=== PATIENT | male | born 1975 | race Caucasian/White ===

== ENCOUNTER 2016-09-20 16:41 | Inpatient (IN) | payer OTHER ==
[~2016-09-20] VITALS: Ht 172.7 cm; Wt 86.2 kg
--- NOTE | 2016-09-20 16:47 | NUR ---
PT STATES HE WENT TO WALK IN TO GET CLEARED TO GO BACK TO WORK. PT STATES THEY MADE HIM COME TO ED BECAUSE HIS BP IS HIGH.
--- NOTE | 2016-09-20 17:08 | NUR ---
LABS DRAWN AND SENT BY THIS MST. BLUE,SST,LAV.
[2016-09-20 17:19] LABS: ABSOLUTE BASOPHIL COUNT 0.1 /CUMM (0.0-0.2); ABSOLUTE EOSINOPHIL COUNT 0.2 /CUMM (0.0-0.7); ABSOLUTE GRANULOCYTE CT 6.9 /CUMM (1.4-6.5); ABSOLUTE LYMPH COUNT 2.6 /CUMM (1.2-3.4); ABSOLUTE MONOCYTE COUNT 0.6 /CUMM (0.10-0.60); BASOPHIL % 0.6 % (0.0-2.0); GRANULOCYTE % 66.8 % (42.2-75.2); HEMATOCRIT 43.4 % (42-52); MEAN CORPUSCULAR HGB 31.6 PG (27.0-31.0); MEAN CORPUSCULAR HGB CONC 33.3 G/DL (33.0-37.0); MEAN CORPUSCULAR VOLUME 94.7 FL (80.0-94.0); MEAN PLATELET VOLUME 7.6 FL (7.4-10.4); PLATELET COUNT 314 /CUMM (130-400); RBC DISTRIBUTION WIDTH 14.7 % (11.5-14.5); RED BLOOD CELL CT 4.58 /CUMM (4.70-6.10); WHITE BLOOD CELL COUNT 10.3 /CUMM (4.8-10.8)
--- NOTE | 2016-09-20 18:22 | ED GENERAL ADULT ---
History of Present Illness General Chief Complaint: General Adult Stated Complaint: SIB DIZZY AND HEADACHE Source: patient Exam Limitations: no limitations Vital Signs & Intake/Output Vital Signs & Intake/Output Vital Signs Date Time Temp Pulse Resp B/P Pulse O2 O2 Flow FiO2 Ox Delivery Rate 09/20 2022 96.7 72 16 190/100 09/20 2022 96.7 72 16 190/100 09/20 2021 96.7 72 16 190/100 99 Room Air 09/20 1926 75 190/94 09/20 190 75 18 182/108 98 Room Air 09/20 1828 98.3 92 16 236/132 09/20 1817 236/132 09/20 1648 98.3 92 16 200/118 98 Room Air Allergies Coded Allergies: NO KNOWN ALLERGIES (09/20/16) Reconcile Medications No Known Home Medications Triage Note: PT STATES HE WENT TO WALK IN TO GET CLEARED TO GO BACK TO WORK. PT STATES THEY MADE HIM COME TO ED BECAUSE HIS BP IS HIGH. Triage Nurses Notes Reviewed? yes Onset: Gradual Duration: day(s): (1) Timing: remote history Injury Environment: home Severity: moderate Severity Numbers: 6 HPI: Patient is a 41-year-old male with no known past medical history, positive family history for hypertension on his mother sides with chief complaint of dizziness that started this morning. Patient reports that he was dizzy and works abated his blood pressure. It was extremely elevated so they sent him to the urgent care for evaluation. At the urgent care they took his blood pressure down and was extremely elevated and they did an EKG. He was referred to the emergency department for evaluation. Patient requesting to be cleared to go back to work. Patient denying any chest pain and shortness of breath. He reports that he feels very anxious. He reports that he drinks and smokes daily. No history of withdrawal seizures. Denies any drug use. (CHANEL TIDWELL) Past History Travel History Traveled to [place] past 21 day No Medical History Any Pertinent Medical History? see below for history Surgical History Surgical History: non-contributory Psychosocial History What is your primary language Portuguese Tobacco Use: Current Daily Use Daily Tobacco Use Amount/Type: => 5 Cigarettes daily ETOH Use: heavy use Illicit Drug Use: denies illicit drug use Family History Family History, If Any: MOTHER Relation not specified for: FH: hypertension Hx Contributory? Yes (CHANEL TIDWELL) Review of Systems Review of Systems Constitutional: Reports: no symptoms. Comments Review of systems: See HPI, All other systems negative. Constitutional, no chills fever or weight loss HEENT: No visual changes no sore throat no congestion Cardiovascular: No chest pain ,palpitation , orthopnea or ankle swelling Skin, no jaundice no rashes Respiratory: No dyspnea cough sputum or hemoptysis GI: No nausea no vomiting : No dysuria No hematuria Muscle skeletal: no back pain, no neck pain, Neurologic: No numbness no confusion Psych: Positive stress and anxiety Heme/endocrine: No bruising no bleeding no polyuria or polydipsia Immunology: No splenectomy or history of AIDS (CHANEL TIDWELL) Physical Exam Physical Exam General Appearance: well developed/nourished, awake, anxious Comments: Well-developed well-nourished person in no acute distress HEENT: Normal EENT exam, extraocular motion intact, no nystagmus. Pupils equally round and reactive to light and accommodation. Nose is atraumatic. External auditory canal and Tympanic membranes clear. Pharynx normal. No swelling or edema. Funduscopic: Somewhat limited secondary to no narration prior to exam. No obvious retinal detachment or hemorrhage or venous nicking noted. Neck: Supple, no lymphadenopathy, normal range of motion without pain or tenderness Back: Nontender, no CVA tenderness. Full range of motion Cardiovascular: Regular rate and rhythms no murmurs rubs or gallops, normal JVP Respiratory: Chest nontender. No respiratory distress.diffuse wheezing to auscultation bilaterally Abdomen: Soft, nontender nondistended, no appreciable organomegaly. Normal bowel sounds. No ascites Extremity: No edema, no calf tenderness to palpation, normal and equal pulses. Neuro: Alert oriented x3, motor sensory normal, cranial nerves II through XII grossly intact. Skin: No appreciable rash on exposed skin, skin is warm and dry. Psych: ANXIOUS, memory and judgment is normal. Core Measures ACS in differential dx? Yes CVA/TIA Diagnosis: No Severe Sepsis Present: No Septic Shock Present: No (CHANEL TIDWELL) Progress Differential Diagnoses I considered the following diagnoses in my evaluation of the patient: Hypertensive urgency, alcohol withdrawal, medication and complaints, ACS, intracranial hemorrhage, acute kidney injury Plan of Care: Orders Procedure Date/time Status Regular Diet 09/21 B Active Patient Data 09/20 2042 Active OXYGEN SETUP (GEN) 09/20 2020 Active Saline Lock 09/20 2020 Active Admit to inpatient 09/20 2020 Active Vital Signs 09/20 2020 Active Activity/Ambulation 09/20 2020 Active Code Status 09/20 2020 Active Patient Data 09/20 2016 Active Add-on Test (ER Only) 09/20 192 Active CIWA 09/20 1909 Active ETHANOL 09/20 170 Complete TROPONIN LEVEL 09/20 1650 Complete COMPREHENSIVE METABOLIC PANEL 09/20 1650 Complete CBC WITHOUT DIFFERENTIAL 09/20 1650 Complete EKG 09/20 1649 Active Laboratory Tests 09/20/16 1703: Anion Gap 11, Estimated GFR > 60, BUN/Creatinine Ratio 13.8, Glucose 95, Calcium 10.0, Total Bilirubin 0.9, AST 24, ALT 37, Alkaline Phosphatase 132 H, Troponin I < 0.01, Total Protein 7.7, Albumin 4.3, Globulin 3.4, Albumin/Globulin Ratio 1.3, CBC w Diff NO MAN DIFF REQ, RBC 4.58 L, MCV 94.7 H, MCH 31.6 H, RDW 14.7 H, MPV 7.6, Gran % 66.8, Lymphocytes % 25.2, Monocytes % 5.4, Eosinophils % 2.0 , Basophils % 0.6, Absolute Granulocytes 6.9 H, Absolute Lymphocytes 2.6, Absolute Monocytes 0.6, Absolute Eosinophils 0.2, Absolute Basophils 0.1, PUBS MCHC 33.3, Serum Alcohol < 10.0 Diagnostic Imaging: Viewed by Me: Radiology Read, CT Scan. Discussed w/RAD: Radiology Read, CT Scan. Initial ED EKG: SINUS AT 86 BPM, RBBB, LPFB Comments: 09/20/2016 6:39:32 PM patient slightly anxious, hypertensive urgency. Patient medicated with IV labetalol 20 mg. We will reassess in 20 minutes. Labs do not show any signs of acute organ failure. We will also obtain urinalysis, chest x- ray and CT of the head. She was squares will be performed the patient reports he is a daily drinker. 09/20/2016 8:23:25 PM blood pressure seems to be trending down after IV labetalol. Spoke with Dr. 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 Recommending admission for hypertensive urgency. Also recommending adding on 200 by mouth labetalol, IV Ativan. No signs of end organ damage. Patient will likely need echocardiogram and cardiology consultation. Patient complIANT with admission. (CHANEL TIDWELL) Departure Departure Time of Disposition: 2010 Disposition: STILL A PATIENT Condition: Stable Clinical Impression Primary Impression: Hypertensive urgency Referrals: REESE ORTIZ,TRES (PCP/Family) Departure Forms: Customer Survey General Discharge Information Prescriptions: Current Visit Scripts No Known Home Medications Admission Note Spoke With: NAN ORTIZ PhD,BRO Interiano Documentation of Exam: Documentation of any treatments & extenuating circumstances including Concerns Regarding Discharge (functional status, medication knowledge or non-compliance, living conditions, etc.) that warrant an admission rather than observation: Patient requiring telemetry monitoring, cardiology consultation, echocardiogram, IV antihypertensive medications, conversion to by mouth antihypertensive medications. Discharge at this time would be medically harmful which could and in stroke, MT or . (CHANEL TIDWELL) PA/WRINGER OPERATOR Co-Sign Statement Statement: ED Attending supervision documentation- X I saw and evaluated the patient. I have also reviewed all the pertinent lab results and diagnostic results. I agree with the findings and the plan of care as documented in the PA's/WRINGER OPERATOR's documentation. [] I have reviewed the ED Record and agree with the PA's/WRINGER OPERATOR's documentation. [] Additions or exceptions (if any) to the PAs/WRINGER OPERATOR's note and plan are summarized below: [] (HUMAIRA ORTIZ,RODERICK) Critical Care Note Critical Care Note Critical Care Time: 30-74 min (CHANEL TIDWELL)
--- NOTE | 2016-09-20 18:25 | NUR ---
IV ACCESS ESTABLISHED BY THIS RN RH #[id number].
--- NOTE | 2016-09-20 18:34 | NUR ---
PT TO XRAY VIA STRETCHER
--- NOTE | 2016-09-20 19:04 | NUR ---
BACK FROM CT AND XRAY. AFTER LABETOLOL BP IMPROVED FROM 236/132-182/108. PA AWARE.
--- NOTE | 2016-09-20 19:05 | RADIOLOGY REPORT ---
EXAMINATION: CHEST 2 VIEWS CLINICAL INFORMATION: Hypertension. COMPARISON: None. TECHNIQUE: PA and lateral views of the chest were obtained. FINDINGS: The cardiac silhouette is not enlarged. The mediastinal and hilar contours are unremarkable. There are neither pleural effusions nor pneumothoraces. There are no consolidations. The osseous structures are unremarkable. IMPRESSION: No evidence for acute disease.
--- NOTE | 2016-09-20 19:32 | CT SCAN REPORT ---
EXAMINATION: CT HEAD WITHOUT CONTRAST CLINICAL INFORMATION: Hypertensive urgency. Dizziness. COMPARISON: No relevant prior imaging is available. TECHNIQUE: Contiguous axial imaging was performed from the skull base to vertex without intravenous administration of contrast. DLP: 600.71 mGy-cm FINDINGS: There is no acute intracranial hemorrhage or abnormal extra axial collection. No intracranial mass effect or midline shift. Lateral and third ventricles are normal. No hydrocephalus. Darby-white matter differentiation is preserved and there is no evidence of acute territorial infarct. The calvarium and skull base are intact. Mastoid air cells and middle ear cavities are well aerated. Visualized paranasal sinuses are well aerated with the exception of mild disease within ethmoid air cells. There are a few ovoid well marginated subcutaneous lesions within the suboccipital region, one of which appears to represent a epidermal inclusion cyst. Some of these may represent lymph nodes. Correlation with clinical examination is recommended with regard to this finding. IMPRESSION: No acute intracranial finding. Specifically no evidence of acute hemorrhage. There are a few ovoid well marginated subcutaneous lesions within the suboccipital region one of which appears represent an epidermal inclusion cyst. Some of these may represent lymph nodes. Correlation with clinical examination is recommended with regard to this finding.
[2016-09-20 20:23] VITALS: BP 190/100
--- NOTE | 2016-09-20 20:39 | NUR ---
MEDICATED PER EMAR. CIWA 6, NO CLEAR SIGNS OF WITHDRAWAL (ANXIETY R/T LIFE STRESSORS AND ONGOING FOR DAYS PER PT, HEADACHE ?R/T HYPERTENSION.) MEDICATED WITH LABETOLOL AND ATIVAN PER EMAR. WATER PROVIDED, PT REFUSED MEAL AT THIS TIME. AWAITING ADMISSION.
--- NOTE | 2016-09-20 20:44 | History & Physical ---
RAÚL ORTIZ,[facility] 09/20/162043: General Information and HPI MD Statement: I have seen and personally examined TIESHA BENITO and documented this H&P. The patient is a 41 year old M who presented with a patient stated chief complaint of elevated blood pressure. Source of Information: patient Exam Limitations: no limitations History of Present Illness: This is a 41-year-old gentleman with no known past medical history is sent in by an urgent care for evaluation of elevated BP. Patient states that while at his normal state of health working as a [employer] and [employer] history experiencing some lightheadedness and felt that he was sick. Patient decided to go to an urgent care for evaluation and his BP measurement was remarkable for elevated numbers which he reports to be in the 200s systolic. Patient also states that urgent care obtain an EKG which was reported to be abnormal and he was therefore referred to [place] ED. Patient denies any chest pain, palpitation, vision changes, altered mental status, or any focal neurological deficit. He does report intermittent episodes of anxiety but has never been evaluated or treated for it. Patient also reports a social history of drinking about 8-10 twisted teas and a 20 year cigarette smoking history of 1 pack per day. Does deny any use of illicit drugs. Patient denies any fever, chills, cough, recent URI, sick contacts, nausea, vomiting, muscle pain, abdominal pain, or dysuria Allergies/Medications Allergies: Coded Allergies: NO KNOWN ALLERGIES (09/20/16) Home Med list No Known Home Medications Past History Travel History Traveled to [place] past 21 day No Surgical History Surgical History: non-contributory Past Family/Social History Family History Relations & Conditions if any MOTHER Relation not specified for: FH: hypertension Psychosocial History ETOH Use: heavy use Illicit Drug Use: denies illicit drug use Review of Systems Review of Systems Constitutional: Reports: see HPI. EENTM: Reports: blurred vision, double vision. Cardiovascular: Denies: chest pain, edema, orthopena. Respiratory: Denies: cough, hemoptysis, orthopnea. GI: Denies: abdominal pain, bloating, constipation, diarrhea. Genitourinary: Denies: discharge, dysuria, frequency. Musculoskeletal: Denies: gout, joint pain, joint swelling. Skin: Denies: dryness, erythema, jaundice, lesions. Neurological/Psychological: Denies: emotional problems, headache, numbness, paresthesia. Hematologic/Endocrine: Denies: bruising, bleeding, polyuria. Immunologic/Allergic: Reports: no symptoms. Exam & Diagnostic Data Last 24 Hrs of Vital Signs/I&O Vital Signs Date Time Temp Pulse Resp B/P Pulse O2 O2 Flow FiO2 Ox Delivery Rate 09/20 2305 97.7 73 20 148/90 96 Room Air 09/20 2233 97.0 83 16 162/84 09/20 2233 97.0 83 16 162/84 100 Room Air 09/20 2120 75 16 162/86 98 Room Air 09/20 2022 96.7 72 16 190/100 09/20 2022 96.7 72 16 190/100 09/20 2021 96.7 72 16 190/100 99 Room Air 09/20 1926 75 190/94 09/20 1903 75 18 182/108 98 Room Air 09/20 1828 98.3 92 16 236/132 09/20 1817 236/132 09/20 1648 98.3 92 16 200/118 98 Room Air Intake & Output 09/21 0800 09/21 0000 09/20 1600 Intake Total Output Total Balance Patient 86.183 kg Weight Physical Exam General Appearance Alert, Oriented X3, Cooperative Skin No Significant Lesion HEENT Atraumatic, PERRLA, EOMI, no papilla edema noted Neck Supple, No JVD, No thryomegaly Lymphatic Cervical nl Cardiovascular Regular Rate, Normal S1, Normal S2, No Murmurs, Gallops Lungs Clear to Auscultation, Normal Air Movement Abdomen Normal Bowel Sounds, Soft, No Tenderness Neurological Normal Speech, Normal Tone, Sensation Intact Extremities No Edema, Normal Pulses, No Tenderness/Swelling Vascular Normal Pulses, Pulses Symmetrical Last 24 Hrs of Labs/Nathaniel: Laboratory Tests 09/21/16 0015: Troponin I < 0.01 09/20/16 1703: Anion Gap 11, Estimated GFR > 60, BUN/Creatinine Ratio 13.8, Glucose 95, Calcium 10.0, Total Bilirubin 0.9, AST 24, ALT 37, Alkaline Phosphatase 132 H, Troponin I < 0.01, Total Protein 7.7, Albumin 4.3, Globulin 3.4, Albumin/Globulin Ratio 1.3, CBC w Diff NO MAN DIFF REQ, RBC 4.58 L, MCV 94.7 H, MCH 31.6 H, RDW 14.7 H, MPV 7.6, Gran % 66.8, Lymphocytes % 25.2, Monocytes % 5.4, Eosinophils % 2.0 , Basophils % 0.6, Absolute Granulocytes 6.9 H, Absolute Lymphocytes 2.6, Absolute Monocytes 0.6, Absolute Eosinophils 0.2, Absolute Basophils 0.1, PUBS MCHC 33.3, Serum Alcohol < 10.0 Diagnostic Data EKG Results RBBB Assessment/Plan Assessment: This is a 41-year-old gentleman with no known past medical history presents for evaluation of hypertensive urgency. Patient is also noted to be consuming daily alcohol of about 8-10 twisted teas a day and smokes about 1 pack per day for about 20 years. She also endorses a remote intermittent history of anxiety which he states has never been evaluated or treated. Patient presented to ED with elevated blood pressure of 236/132 with a heart rate of 72. He also reports that the BP at urgent care was in the high 200s ( systolic) Assessment and plan #Hypertensive urgency Patient presents with elevated blood pressure levels above 236/132 with no symptoms of chest pain, vision changes, altered mental status, or any focal neurological deficit. Plan Status post 20 mg IV labetalol and 200 mg by mouth labetalol Need to be cautious to prevent precipitous drop of BP as it is not known how long patient has elevated blood pressures therefore might be at increased risk of ischemia if BP lowered drastically. Will start labetalol 200 mg twice a day starting tomorrow morning Will trend serial troponins and EKG #Alcohol abuse Patient endorses a daily usage of 8-10 twisted teas. Plan Lorazepam per [facility] protocol Will monitor for any withdrawal symptoms including seizures #Tobacco abuse Will start nicotine 40 mg daily as patient smokes one pack per day #DVT prophylaxis Subcutaneous Lovenox As Ranked By This Provider Problem List: 1. Hypertensive urgency Core Measures/Miscellaneous Acute Coronary Syndrome ACS Diagnosis: No Cerebrovascular Accident CVA/TIA Diagnosis: No Congestive Heart Failure CHF Diagnosis: No Venous Thromboembolism VTE Risk Factors: Age > 40 [facility] prophylaxis d/t: No contraindications No VTE Pharm Prophylaxis d/t: No contraindications VTE Diagnosis: No VTE Type: NONE VTE Confirmed by (Test): NONE Severe Sepsis Severe Sepsis Present: No Septic Shock Septic Shock Present: No Miscellaneous Documentation Attending Case Discussed With: NAN ORTIZ PhD,BRO Interiano Primary Care Physician: REESE ORTIZ,TRES Patient sees these Specialists none Level of Patient Care: Telemetry KRISS ALVARADO MD 09/20/16 2356: Resident Review Statement Resident Statement: examined this patient, discussed with financial analyst intern, agreed with financial analyst intern Other Findings: 41 y/o M with no know PMH who presents to the ED after he was sent in from an Urgent Care clinic for elevated BP. According to the patient, he started feeling a little lightheaded and warm this morning. He works at [employer]. His co- workers checked his BP because he did not look well and it was elevated at 160 Systolic. He was sent to an Urgent care clinic, where it was still found to be high. An EKG was done which showed some changes, and he was sent to the ED for further evaluation. He does not report any chest pain or pressure, palpitations, nausea etc. He states that his diet is not very healthy and he eats only once a day. He drinks 8-10 twisted teas a day and smokes 1 PPD. He reports feeling anxious all this time but does not take any medications for his anxiety. Vitals: BP at the time of arrival was 236/132/ HR 72-95, saturating 99% on RA Exam: WNL Labs: WNL, Trops x 1 <0.01 Problem List: 1) Hypertensive Urgency: * Patient has already received 20 mg of IV Labetalol, 200 mg PO Labetalol and 1 mg of Ativan in the ED. His blood pressure decreased to 148/90. * Will hold off on any further medications for now. * Start Labetalol 200 mg BID from tomorrow. * ECHO to assess for LV function * Trops and EKG x3 2) ETOH usage: * As he continues to use ETOH daily, CIWA protocol and Ativan per CIWA 3) Smoker: * Smokes 1 PPD. * Start Nicotine Patch 14 mg daily. 4) DVT PPx: * SubQ Lovenox 5) Pain Pathway: * Tylenol PRN 6) Code Status: * Full Code
--- NOTE | 2016-09-20 21:21 | NUR ---
PT FEELING BETTER, SLEEPING ON/OFF, REPORTS HEADACHE AND ANXIETY IMPROVED. NO COMPLAINTS. AWAITING ADMISSION.
--- NOTE | 2016-09-20 21:56 | NUR ---
PT BED ASSIGNMENT 174-2
--- NOTE | 2016-09-20 21:58 | NUR ---
HOUSE STAFF AT BEDSIDE
[2016-09-20 22:34] VITALS: BP 162/84
--- NOTE | 2016-09-20 22:35 | NUR ---
PT ASLEEP, EASILY AROUSED, NO COMPLAINTS, NO SIGNS OF WITHDRAWAL, PT FEELING MILDLY SEDATED FROM ATIVAN.
--- NOTE | 2016-09-20 22:39 | NUR ---
REPORT CALLED TO TONA ON 1N.
[2016-09-20 23:00] VITALS: BP 148/90
[2016-09-20 23:05] VITALS: BP 148/90
[2016-09-21 05:50] VITALS: BP 152/90
--- NOTE | 2016-09-21 07:07 | PN- Housestaff ---
Subjective Follow-up For: #1 hypertensive urgency Alcohol abuse Complaints: no complaints Tele-Events Since Last Visit: Normal sinus rhythm, heart rate 64-83, no overnight events. Subjective: The patient comfortable. Did not have any complaints. Vitals were stable overnight. Blood pressure dropped down from systolic 200--> 148. He remained afebrile overnight. No chest pain, palpitations, shortness of breath. Review of Systems Constitutional: Reports: see HPI. Objective Last 24 Hrs of Vital Signs/I&O Vital Signs Date Time Temp Pulse Resp B/P Pulse O2 O2 Flow FiO2 Ox Delivery Rate 09/20 2304 97.7 73 20 148/90 96 Room Air 09/20 230 82 18 148/90 09/20 2233 97.0 83 16 162/84 09/20 2233 97.0 83 16 162/84 100 Room Air 09/21 2119 75 16 162/86 98 Room Air 09/20 2022 96.7 72 16 190/100 09/20 2022 96.7 72 16 190/100 09/20 2021 96.7 72 16 190/100 99 Room Air 09/20 1926 75 190/94 09/20 1903 75 18 182/108 98 Room Air 09/20 1828 98.3 92 16 236/132 09/20 1817 236/132 09/20 1648 98.3 92 16 200/118 98 Room Air Intake & Output 09/21 0800 09/21 0000 09/20 1600 Intake Total Output Total Balance Patient 190 lb Weight Physical Exam General Appearance: No Acute Distress Other Physical Findings: General Exam: AAOx3, No acute distress, Skin: No rashes, no breakdown HEENT: PERRLA, EOMI Neck: Supple, No JVD No cervical lymphadenopathy CVS: Reg Rate, Normal S1,S2, No MGR Resp: Normal air entry, no ronchi/rales Abdomen: Soft, No tenderness, Normal Bowel Sounds Neuro: Normal Speech, Strength 5/5 b/l x 4 extremities, Sensation intact, CN III -XII NL, Reflexes 2+ Extremities: No cyanosis, pedal edema Current Medications: Current Medications Sig/Jose C Start time Last Medication Dose Route Stop Time Status Admin Acetaminophen 650 MG Q6P PRN 09/20 2300 AC PO Enoxaparin Sodium 40 MG DAILY 09/21 1000 AC SC Influenza Virus 0.5 ML 1000 09/21 1000 AC Vaccine IM 09/21 1001 Labetalol HCl 200 MG BID 09/21 1000 AC PO Labetalol HCl 0 .STK-MED ONE 09/21 2019 DC PO Labetalol HCl 200 MG ONCE ONE 09/20 2014 DC 09/20 PO 09/20 Labetalol HCl 20 MG ONCE ONE 09/20 1830 DC 09/20 IV 09/20 1831 1828 Labetalol HCl 0 .STK-MED ONE 09/20 1825 DC IV Lorazepam 0 Q1P PRN 09/20 2300 AC IV Lorazepam 0 .STK-MED ONE 09/20 2018 DC .ROUTE Lorazepam 1 MG ONCE ONE 09/20 2014 DC 09/20 IV 09/20 Nicotine 14 MG Q24 09/21 1000 AC TOP Last 24 Hrs of Lab/Nathaniel Results Last 24 Hrs of Labs/Mics: Laboratory Tests 09/21/16 0015: Troponin I < 0.01 09/20/16 1703: Anion Gap 11, Estimated GFR > 60, BUN/Creatinine Ratio 13.8, Glucose 95, Calcium 10.0, Total Bilirubin 0.9, AST 24, ALT 37, Alkaline Phosphatase 132 H, Troponin I < 0.01, Total Protein 7.7, Albumin 4.3, Globulin 3.4, Albumin/Globulin Ratio 1.3, CBC w Diff NO MAN DIFF REQ, RBC 4.58 L, MCV 94.7 H, MCH 31.6 H, RDW 14.7 H, MPV 7.6, Gran % 66.8, Lymphocytes % 25.2, Monocytes % 5.4, Eosinophils % 2.0 , Basophils % 0.6, Absolute Granulocytes 6.9 H, Absolute Lymphocytes 2.6, Absolute Monocytes 0.6, Absolute Eosinophils 0.2, Absolute Basophils 0.1, PUBS MCHC 33.3, Serum Alcohol < 10.0 Assessment/Plan Assessment: Mr Odalys trevizo is a 41-year-old man with a past history of hypertension, is being evaluated for elevated blood pressure systolic blood pressure above 200. Reports regular alcohol intake, nonsmoker. At the time of admission, temperature 98.3, pulse rate 92, respirations 16, note not to 236/132, 98% on room air. Lab findings indicated W BC 10.3, hemoglobin 14.5, MCV 94.7, platelet 314, sodium 136, potassium 4.1, bicarbonate 24, normal renal function BUN 11, serum creatinine 0.8, serial cardiac enzymes within normal limits. Serum alcohol less than 10. Radiology-chest x-ray revealed no acute process. CT scan head without contrast revealed no acute finding. No ischemia or hemorrhage. However, a few well marginated subcutaneous lesions in the sub-occipital region were found likely epidermal inclusion cysts/lymph nodes. Admission diagnosis: #1 hypertensive urgency #2 alcohol abuse Below is the problem list and plan: #1 hypertension-blood pressure adequately controlled. Precipitous drop in blood pressure more than 25% in the last 24 hours. Continue the current regimen. Do not overzealously correct the blood pressure. Continue labetalol 200 mg by mouth twice a day. #2 alcohol abuse-low CIWA scores. Currently on Ativan when necessary. Has not required any IV lorazepam in the last 24 hours. Gives a history of alcohol use, anxiety and depression. Requested psychiatry-[facility] to evaluate the patient. #3 DVT prophylaxis-subcutaneous Lovenox. Problem List: 1. Hypertensive urgency Pain Ratin Pain Location: Headache Pain Goal: Pain 4 or less Pain Plan: Tylenol when necessary Tomorrow's Labs & Rationales: No labs necessary. The patient has been stable in the last 24 hours. DVT/Prophylaxis: pharmacological Consulting Request: Consulting Specialty: Psychiatry Discharge Plan Discharge Disposition: home Stable for Discharge? Yes Anticipated Discharge (Day): tomorrow
[2016-09-21 07:54] LABS: ABSOLUTE BASOPHIL COUNT 0 /CUMM (0.0-0.2); ABSOLUTE EOSINOPHIL COUNT 0.2 /CUMM (0.0-0.7); ABSOLUTE GRANULOCYTE CT 3.8 /CUMM (1.4-6.5); ABSOLUTE LYMPH COUNT 2.1 /CUMM (1.2-3.4); ABSOLUTE MONOCYTE COUNT 0.5 /CUMM (0.10-0.60); BASOPHIL % 0.7 % (0.0-2.0); EOSINOPHIL % 3.7 % (0-5); GRANULOCYTE % 56.4 % (42.2-75.2); HEMATOCRIT 40.6 % (42-52); MEAN CORPUSCULAR HGB 31.6 PG (27.0-31.0); MEAN CORPUSCULAR HGB CONC 33.4 G/DL (33.0-37.0); MEAN CORPUSCULAR VOLUME 94.7 FL (80.0-94.0); MEAN PLATELET VOLUME 7.9 FL (7.4-10.4); PLATELET COUNT 267 /CUMM (130-400); RBC DISTRIBUTION WIDTH 14.7 % (11.5-14.5); RED BLOOD CELL CT 4.29 /CUMM (4.70-6.10); WHITE BLOOD CELL COUNT 6.7 /CUMM (4.8-10.8)
[2016-09-21 08:20] VITALS: BP 164/80
[2016-09-21 12:01] VITALS: BP 150/88
--- NOTE | 2016-09-21 13:56 | Cons- Cardiology ---
General Information and HPI Consulting Request Date of Consult: 09/21/16 Requested By: NAN ORTIZ PhD,BRO [facility] History of Present Illness: This patient is a 41 year old male with history of alcohol abuse. This patient has longstanding issues with anxiety and stress which have become a bit worse over the course of time. He also reports issues with depression. The patient came to the ER yesterday after a transient lightheaded episode associated with diaphoresis and palpitations. No nausea or vomiting. No headache or visual deficit. He does have intermittent palpitations at baseline when stressed out. He also has an intermittent mild chest discomfort that tends to radiate to his neck. It did not occur yesterday but often happens both with stress and activity. It should be noted that this patient's blood pressure was severely elevated to over 230mmHg systolic. At baseline this patient is active without shortness of breath. He does drink about 12 drinks per day. Allergies/Medications Allergies: Coded Allergies: NO KNOWN ALLERGIES (09/20/16) Home Med List: No Known Home Medications Review of Systems Review of Systems: A twelve point review of systems is unremarkable. Past History Travel History Traveled to [place] past 21 day No Medical History Blood Transfusion Hx: No Surgical History Surgical History: non-contributory Family History Relations & Conditions If Any: MOTHER Relation not specified for: FH: hypertension Psychosocial History Where Do You Live? Home Services at Home: None Smoking Status: Current Everyday Smoker ETOH Use: heavy use Illicit Drug Use: denies illicit drug use Exam & Diagnostic Data Vital Signs and I&O Vital Signs Date Time Temp Pulse Resp B/P Pulse O2 O2 Flow FiO2 Ox Delivery Rate 09/21 1619 98.5 69 16 156/87 97 Room Air 09/21 1201 150/88 09/21 1015 70 164/80 09/21 0820 98.0 70 20 164/80 97 Room Air 09/21 0550 78 152/90 09/20 2304 97.7 73 20 148/90 96 Room Air 09/20 2299 82 18 148/90 09/20 2233 97.0 83 16 162/84 09/20 2233 97.0 83 16 162/84 100 Room Air 09/200 75 16 162/86 98 Room Air 09/20 2022 96.7 72 16 190/100 09/20 2022 96.7 72 16 190/100 09/20 2021 96.7 72 16 190/100 99 Room Air 09/20 1925 75 190/94 09/20 1902 75 18 182/108 98 Room Air 09/21 1827 98.3 92 16 236/132 09/20 1817 236/132 Intake & Output 09/21 1600 09/21 0800 09/21 0000 09/20 1600 09/20 0800 09/20 0000 Intake Total 480 240 Output Total Balance 480 240 Intake, Oral 480 240 Patient 190 lb Weight Physical Exam: General: WD/ overweight male in NAD; alert and oriented x 3 HEENT: NC/AT, PERRL, EOMI Neck: no JVD, no carotid bruit Heart: RRR w/o murmur Lungs: clear bilaterally Abdomen: soft, NT, +ve bowel sounds Extremities: no edema Diagnostic Data EKG Results sinus with RBBB, LPFB and small non-diagnostic Q waves in the lateral leads Assessment/Plan Assessment/Plan * This patient has anxiety that he tries to treat by consuming alcohol and he now has depression. The alcohol and anxiety are likely contributors to his hypertension although they are unlikely to be the sole source of this problem. We will ask psychiatry to help us with his dependency issues and anxiety/ depression. For now the patient needs to be on a CIWA protocol. * This patient has a RBBB and LPFB likely due to some lung disease from tobacco abuse. He is advised to quit smoking. We will obtain an echocardiogram to assess for increased RV pressures as well as for myocardial thickening from longstanding hypertension. If this cannot be done as an inpatient then it is reasonable to do this study as an outpatient. * Our goal is to reduce this patient's blood pressure to about 150-160mmHg over the first 24 hours and then reach a goal of less than 140mmHg systolic prior to discharge. Begin Labetolol 200mg PO BID. If BP remains elevated tomorrow an ACEI can be added. Consult Acknowledgment - Thank you for your consult request.
[2016-09-21 16:19] VITALS: BP 156/87
--- NOTE | 2016-09-21 18:48 | Cons- Psychiatry ---
Psychiatric Consult Date of Consult: 09/21/16 Reason for Consult: "anxiety, depression, alcohol abuse" History of Present Illness: Identifying Info: 41-year-old single, male with no known medical history; was referred to by urgent care center for an elevated BP and abnormal EKG. Patient reportedly consumes 8-10 Twisted Tea beverages daily over several years and has a history of depression and anxiety. CC: "My drinking isn't a problem." HPI: Patient has no history of formal psychiatric or substance abuse treatment. He reported starting to drink at 20 years old. He did not elaborate on the pattern of his drinking over this time frame, or indicate that his drinking escalated. He denied encounters consequences as a result of his drinking. He admitted to drinking 8-10 Twisted Tea beverages daily over several years. He denied a history of complicated withdrawal, seizures or DTs in the absence of alcohol. He was not able to recall the last time he attempted to stop drinking. He reported last drinking on 09/19/16 in the afternoon. He could not recall the quantity he drank. 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 Denied neurovegetative symptoms. Denied passive and active suicidal ideation, plans and intent. Denied homicidal ideation and perceptual disturbances. PMH: Please see the H&P for a complete listing Past Psych History: -Outpatient: denies -Inpatient: denies Family Psych History: Denies family psych history Substance History As above, current tobacco use. -Treatment: denies Family Substance History: Denies Social: Single male who lives with his mother in [place], [place]. 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 Has no children. Never . High School graduate. Abuse/Trauma: Denies Current Home Psychotropic Medications: None Allergies: Coded Allergies: NO KNOWN ALLERGIES (09/20/16) Past History Past Surgical History Surgical History: non-contributory Psychosocial History Strengths/Capabilities: Employed, HS education, supportive mother, somewhat motivated for outpatient psychiatric treatment Psychiatric Treatment History Risk Factors: substance abuse, male, limited support Assessment/Plan Mental Status Mental Status Exam: Presentation/Appearance: Calm, cooperative with evaluation, easily engaged in conversation. Wears hospital garb. Well groomed. Orientation: x4 Sensorium: Awake and alert Eye contact: Appropriate Affect: Somewhat blunted but congruent with stated mood Mood: "Anxious if anything" Depression: 4/10 (10 worst) Anxiety: 6/10 (10 worst) Thought Content: - Denies SI/HI, AH/VH, PI. States and also believes he will not harm himself or others. - Denies Hopeless/Helpless/Worthless/Guilty Thoughts Thought Process: Linear and organized Speech: Normal in rate, tone and volume. Judgment: Fair Insight: limited Cognition: Memory: Grossly intact Attention/Concentration: Intact Brief ROS Gait: Not observed Sleep: fair Appetite: fair Energy: fair IADLs/ADLs: Independent Lab Results: Laboratory Tests 09/21 09/21 0650 0015 Chemistry Sodium (137 - 145 mmol/L) 137 Potassium (3.5 - 5.1 mmol/L) 4.6 Chloride (98 - 107 mmol/L) 103 Carbon Dioxide (22 - 30 mmol/L) 25 Anion Gap (5 - 16) 9 Troponin I (<0.11 ng/ml) < 0.01 Hematology CBC w Diff NO MAN DIFF REQ WBC (4.8 - 10.8 /CUMM) 6.7 RBC (4.70 - 6.10 /CUMM) 4.29 L Hgb (14.0 - 18.0 G/DL) 13.6 L Hct (42 - 52 %) 40.6 L MCV (80.0 - 94.0 FL) 94.7 H MCH (27.0 - 31.0 PG) 31.6 H RDW (11.5 - 14.5 %) 14.7 H Plt Count (130 - 400 /CUMM) 267 MPV (7.4 - 10.4 FL) 7.9 Gran % (42.2 - 75.2 %) 56.4 Lymphocytes % (20.5 - 51.1 %) 32.0 Monocytes % (1.7 - 9.3 %) 7.2 Eosinophils % (0 - 5 %) 3.7 Basophils % (0.0 - 2.0 %) 0.7 Absolute Granulocytes (1.4 - 6.5 /CUMM) 3.8 Absolute Lymphocytes (1.2 - 3.4 /CUMM) 2.1 Absolute Monocytes (0.10 - 0.60 /CUMM) 0.5 Absolute Eosinophils (0.0 - 0.7 /CUMM) 0.2 Absolute Basophils (0.0 - 0.2 /CUMM) 0 PUBS MCHC (33.0 - 37.0 G/DL) 33.4 Diffential Diagnosis: Unspecified depressive disorder Unspecified anxiety disorder Alcohol use disorder, severe R/O substance-induced mood disorder Impression: 41-year old single male with a longstanding history of anxiety, depression and alcohol abuse. Has no history of formal psychiatric or substance abuse treatment. Showed limited insight into the severity of his drinking or the potential consequences his drinking pattern could lead to. He appears somewhat motivated for outpatient psychiatric treatment, however appears to lack the ability to remain sober without supports. He refused recommendations of residential rehab or dual intensive outpatient psychiatry program. He was not interested in information on AA for support in sobriety, or in starting an alcohol deterrant medication. The patient was agreeable to pursue outpatient psychiatric services at [facility] for help with mood symptoms. He appears to exhibit denial towards his alcohol use. Provisional Treatment Plan: 1. Continue monitoring patient on CIWA protocol as ordered. 2. Recommend starting po thiamine, multivitamin, and folic acid daily for vitamin supplementation. 3. Patient advised to abstain from all substances. Alcohol counseling provided on the [facility] risks of alcohol and forms of treatment available (including AA ). 4. Psychotropic medications not indicated at this time, as patient does not appear fully motivated to abstain from alcohol. Reviewed the risks of combined use of prescirbed medications and alcohol. 5. Information provided on [facility], [address] [place], [place], ([phone]. Patient was advised to call to schedule an intake appointment. Thank you for including psychiatry in this case. We are signing off at this time. Camelia Wolfe, HI RANGER OPERATOR Pager: [phone]
--- NOTE | 2016-09-21 23:04 | Discharge Summary ---
Visit Information Visit Dates Admission Date: 09/20/16 Discharge Date: 09/22/16 Hospital Course Course Attending Physician: NAN ORTIZ PhD,BRO [facility] Primary Care Physician: TRES LEIGH MD Consulting Request: Consulting Specialty: Psychiatry Hospital Course: This is a 41-year-old male with a past medical history of alcohol abuse, chronic anxiety, presented to the [facility] emergency department 2 days back after he had a transfusion lightheadedness episode associated with diaphoresis and palpitations. At that time no nausea or vomiting was reported. He also denied any headache or visual deficits at the time of presentation denied any chest pain palpitations blurring of vision. In the ER the patient was found to have blood pressure severely elevated at 230mmHg systolic. He denied any shortness of breath or chest pain At baseline this patient is active without shortness of breath. He does drink about 12 drinks per day. Physical exam: Gen: NAD HEENT: normal Lungs: clear to auscultation, normal resp. effort Heart: RRR, S1, S2, no murmurs Abdomen: Soft, nontender, no masses Extremities: No clubbing, cyanosis, or edema. Neuro: Alert and oriented x 3, cranial nerves intact Vitals at the time of admission showed temperature 98.3, pulse rate 92, respirations 16, note not to 236/132, 98% on room air. Lab : W BC 10.3, hemoglobin 14.5, MCV 94.7, platelet 314, sodium 136, potassium 4.1, bicarbonate 24, normal renal function BUN 11, serum creatinine 0.8, serial cardiac enzymes within normal limits. Serum alcohol less than 10. Ancillary results and imaging chest x-ray revealed no acute process. CT scan head without contrast revealed no acute finding. No ischemia or hemorrhage. ekg:sinus with RBBB, LPFB and small non-diagnostic Q waves in the lateral leads The patient was admitted to the telemetry floor and was treated for the following problems: 1. Hypertensive urgency 2. Alcohol abuse 3. Abnormal EKG 4. EVERYDAY SMOKER The patient was admitted to the telemetry floor and was monitored on the heart monitor 24 hours. No acute changes in the patient's rhythm was noticed. The patient also had serial troponins and EKG done which were negative and within normal limits For the patient's elevated blood pressure we started him on labetalol 200 mg by mouth twice a day and instructed him to keep on taking this medication until further evaluation by his primary care physician and flat knitter helper. Unfortunately transthoracic echocardiogram was not performed in the hospital and the patient was instructed to get the transthoracic echocardiogram as an outpatient at Dr. Bird's office. Dr. Monatna is aware of this plan Medication adherence was stressed The patient's EKG changes were were considered to be secondary to the patient's ongoing tobacco and alcohol abuse Alcohol ST and she was also stressed and was given by mouth thiamine and folic supplementation The patient was instructed to follow with Dr. Montana in 1 week of discharge. Allergies: Coded Allergies: NO KNOWN ALLERGIES (09/20/16) Pertinent Lab Results: Laboratory Tests 09/21 09/21 09/21 0650 0500 0015 Chemistry Sodium (137 - 145 mmol/L) 137 Potassium (3.5 - 5.1 mmol/L) 4.6 Chloride (98 - 107 mmol/L) 103 Carbon Dioxide (22 - 30 mmol/L) 25 Anion Gap (5 - 16) 9 Troponin I (<0.11 ng/ml) Cancelled < 0.01 Hematology CBC w Diff NO MAN DIFF REQ WBC (4.8 - 10.8 /CUMM) 6.7 RBC (4.70 - 6.10 /CUMM) 4.29 L Hgb (14.0 - 18.0 G/DL) 13.6 L Hct (42 - 52 %) 40.6 L MCV (80.0 - 94.0 FL) 94.7 H MCH (27.0 - 31.0 PG) 31.6 H RDW (11.5 - 14.5 %) 14.7 H Plt Count (130 - 400 /CUMM) 267 MPV (7.4 - 10.4 FL) 7.9 Gran % (42.2 - 75.2 %) 56.4 Lymphocytes % (20.5 - 51.1 %) 32.0 Monocytes % (1.7 - 9.3 %) 7.2 Eosinophils % (0 - 5 %) 3.7 Basophils % (0.0 - 2.0 %) 0.7 Absolute Granulocytes (1.4 - 6.5 /CUMM) 3.8 Absolute Lymphocytes (1.2 - 3.4 /CUMM) 2.1 Absolute Monocytes (0.10 - 0.60 /CUMM) 0.5 Absolute Eosinophils (0.0 - 0.7 /CUMM) 0.2 Absolute Basophils (0.0 - 0.2 /CUMM) 0 PUBS MCHC (33.0 - 37.0 G/DL) 33.4 09/20 1703 Chemistry Sodium (137 - 145 mmol/L) 136 L Potassium (3.5 - 5.1 mmol/L) 4.1 Chloride (98 - 107 mmol/L) 101 Carbon Dioxide (22 - 30 mmol/L) 24 Anion Gap (5 - 16) 11 BUN (9 - 20 mg/dL) 11 Creatinine (0.7 - 1.2 mg/dL) 0.8 Estimated GFR (>60 ml/min) > 60 BUN/Creatinine Ratio (7 - 25 %) 13.8 Glucose (65 - 99 mg/dL) 95 Calcium (8.4 - 10.2 mg/dL) 10.0 Total Bilirubin (0.2 - 1.3 mg/dL) 0.9 AST (17 - 59 U/L) 24 ALT (21 - 72 U/L) 37 Alkaline Phosphatase (< 127 U/L) 132 H Troponin I (<0.11 ng/ml) < 0.01 Total Protein (6.3 - 8.2 g/dL) 7.7 Albumin (3.5 - 5.0 g/dL) 4.3 Globulin (1.9 - 4.2 gm/dL) 3.4 Albumin/Globulin Ratio (1.1 - 2.2 %) 1.3 Hematology CBC w Diff NO MAN DIFF REQ WBC (4.8 - 10.8 /CUMM) 10.3 RBC (4.70 - 6.10 /CUMM) 4.58 L Hgb (14.0 - 18.0 G/DL) 14.5 Hct (42 - 52 %) 43.4 MCV (80.0 - 94.0 FL) 94.7 H MCH (27.0 - 31.0 PG) 31.6 H RDW (11.5 - 14.5 %) 14.7 H Plt Count (130 - 400 /CUMM) 314 MPV (7.4 - 10.4 FL) 7.6 Gran % (42.2 - 75.2 %) 66.8 Lymphocytes % (20.5 - 51.1 %) 25.2 Monocytes % (1.7 - 9.3 %) 5.4 Eosinophils % (0 - 5 %) 2.0 Basophils % (0.0 - 2.0 %) 0.6 Absolute Granulocytes (1.4 - 6.5 /CUMM) 6.9 H Absolute Lymphocytes (1.2 - 3.4 /CUMM) 2.6 Absolute Monocytes (0.10 - 0.60 /CUMM) 0.6 Absolute Eosinophils (0.0 - 0.7 /CUMM) 0.2 Absolute Basophils (0.0 - 0.2 /CUMM) 0.1 PUBS MCHC (33.0 - 37.0 G/DL) 33.3 Toxicology Serum Alcohol (<10 MG/DL) < 10.0 Disposition Summary Disposition Principal Diagnosis: Hypertensive urgency Additional Diagnosis: Abnormal EKG changes Chronic smoker Alcohol withdrawal Discharge Disposition: home or self care Discharge Instructions General Discharge Information Code Status: Full Code Patient's Diet: Low-sodium diet was recommended Patient's Activity: As tolerated Follow-Up Instructions/Appts: Follow-up with Dr. Bird in 1 week of discharge Medications at Discharge Discharge Medications: Start taking the following new medications: Labetalol HCl (Labetalol HCl) 200 MG TABLET 200 Milligram ORAL TWICE DAILY Days = 30 No Refills Comments: GIVEN 09/22/16 @ 0940 Thiamine HCl (B-1) 100 MG TABLET 1 Tablet ORAL DAILY Qty = 30 No Refills Comments: GIVEN 09/22/16 @ 0940 Folic Acid (Folic Acid) 1 MG TABLET 1 Tablet ORAL DAILY Qty = 30 No Refills Comments: GIVEN 09/22/16 @ 0940 Copies To: REESE ORTIZ,GUERLINE MONTANA MD PhD,BRO [facility]
[2016-09-21] MEDS ORDERED: B-1100 MG PO (23:05)
[2016-09-21] MEDS ORDERED: FOLIC ACID1 M1 PO (23:05)
[2016-09-22 00:18] VITALS: BP 152/90
[2016-09-22 08:14] VITALS: BP 142/88
--- NOTE | 2016-09-22 08:22 | PN- Housestaff ---
Subjective Follow-up For: Hypertensive urgency Tele-Events Since Last Visit: No events on telemetry Subjective: Patient has been doing fine. No complaint of headache, dizziness throughout the night. Blood pressure remained stable Review of Systems Constitutional: Reports: see HPI. Objective Last 24 Hrs of Vital Signs/I&O Vital Signs Date Time Temp Pulse Resp B/P Pulse O2 O2 Flow FiO2 Ox Delivery Rate 09/22 0814 98.3 78 18 142/88 97 Room Air 09/22 0018 98.0 70 18 152/90 96 Room Air 09/21 2240 78 152/90 09/21 1619 98.5 69 16 156/87 97 Room Air 09/21 1201 150/88 09/21 1015 70 164/80 Intake & Output 09/22 1600 09/22 0800 09/22 0000 Intake Total 60 460 Output Total Balance 60 460 Intake, IV 10 10 Intake, Oral 50 450 Number 0 Bowel Movements Physical Exam General Appearance: Alert, Oriented X3 Skin: No Rashes, No Breakdown HEENT: Atraumatic, PERRLA, EOMI Neck: Supple, No JVD Lymphatic: Axillary nl, Cervical nl Cardiovascular: Regular Rate, Normal S1, Normal S2 Lungs: Clear to Auscultation, Normal Air Movement Abdomen: Soft, No Tenderness Assessment/Plan Assessment: This is a 41-year-old man with a past medical history of hypertension being evaluated for hypertensive urgency. The patient was admitted with a blood pressure of greater than 200 systolic and was given IV medications. At the time of admission, temperature 98.3, pulse rate 92, respirations 16, note not to 236/132, 98% on room air. Lab findings indicated W BC 10.3, hemoglobin 14.5, MCV 94.7, platelet 314, sodium 136, potassium 4.1, bicarbonate 24, normal renal function BUN 11, serum creatinine 0.8, serial cardiac enzymes within normal limits. Serum alcohol less than 10. Radiology-chest x-ray revealed no acute process. CT scan head without contrast revealed no acute finding. No ischemia or hemorrhage. However, a few well marginated subcutaneous lesions in the sub-occipital region were found likely epidermal inclusion cysts/lymph nodes. The patient is being treated in the hospital for the following problems Assessment: 1. Hypertensive urgency 2. Alcohol withdrawal Plan -The patient's blood pressure has been within normal limits since the addition of the blood pressure medications. The patient is stable for discharge today. -The patient was instructed to get a transthoracic echocardiogram on his discharge as it was not done in hospital He was also instructed to follow with Dr. Bruno on 1 week of discharge Patient's medication adherence was instructed in detail Counseled from abstinence of alcohol Commend continue taking multivitamin, thiamine, and folate supplementation DVT prophylaxis was maintained at all times Patient is full code Problem List: 1. Hypertensive urgency Pain Ratin Pain Location: no pain Pain Goal: Remain pain free Pain Plan: po tyelno as needed Tomorrow's Labs & Rationales: not needed Consulting Request: Consulting Specialty: Psychiatry
--- NOTE | 2016-09-22 08:55 | Patient Discharge Instructions ---
Discharge Instructions General Discharge Information You were seen/treated for: Hypertensive urgency Watch for these problems: - elevated blood pressure - shortness of breath - chest Special Instructions: PLease f/u with your PCP in1 week of discharge. PLease get a an echocardiogram on your discharge, Acute Coronary Syndrome Inclusion Criteria At DC or during hospital stay patient has or had the following: ACS DIAGNOSIS No Discharge Core Measures Meds if any: Prescribed or Continued at Discharge Meds if any: NOT Prescribed or Continued at Discharge Congestive Heart Failure Inclusion Criteria At DC or during hospital stay patient has or had the following: CHF DIAGNOSIS No Discharge Core Measures Meds if any: Prescribed or Continued at Discharge Meds if any: NOT Prescribed or Continued at Discharge Cerebrovascular accident Inclusion Criteria At DC or during hospital stay patient has or had the following: CVA/TIA Diagnosis No Discharge Core Measures Meds if any: Prescribed or Continued at Discharge Meds if any: NOT Prescribed or Continued at Discharge Venous thromboembolism Inclusion Criteria VTE Diagnosis No VTE Type NONE VTE Confirmed by (Test) NONE Discharge Core Measures - Per Current guidelines, there needs to be overlap - treatment for the first 5 days of Warfarin therapy. - If discharged on Warfarin prior to 5 days of - overlap therapy, the patient will need to be - assessed for post discharge needs including - *Post discharge parental anticoagulation - *Warfarin and/or parental anticoagulation education - *Follow up date to check INR post discharge At least 5 days overlap therapy as Inpatient No Meds if any: Prescribed or Continued at Discharge Note: Overlap Therapy is Warfarin and Anticoagulant Meds if any: NOT Prescribed or Continued at Discharge
[2016-09-22 09:41] VITALS: BP 142/88
[2016-09-22] MEDS ORDERED: LABETALOL HCL200 M1 PO (10:50)
--- NOTE | 2016-09-22 11:12 | PN- Cardiology ---
Subjective Subjective: Feeling well. No palpitations. No chest pain. No lightheadedness or dizziness. No nausea or vomiting. No headache. Objective Vital Signs and I&Os Vital Signs Date Time Temp Pulse Resp B/P Pulse O2 O2 Flow FiO2 Ox Delivery Rate 09/22 0941 142/88 09/22 0814 98.3 78 18 142/88 97 Room Air 09/22 0018 98.0 70 18 152/90 96 Room Air 09/21 2240 78 152/90 09/21 1619 98.5 69 16 156/87 97 Room Air 09/21 1201 150/88 Intake & Output 09/22 1600 09/22 0800 09/22 0000 09/21 1600 09/21 0800 09/21 0000 Intake Total 60 460 480 240 Output Total Balance 60 460 480 240 Intake, IV 10 10 Intake, Oral 50 450 480 240 Number 0 Bowel Movements Patient 190 lb Weight Physical Exam: Gen: NAD HEENT: normal Lungs: clear to auscultation, normal resp. effort Heart: RRR, S1, S2, no murmurs Abdomen: Soft, nontender, no masses Extremities: No clubbing, cyanosis, or edema. Neuro: Alert and oriented x 3, cranial nerves intact Current Medications: Current Medications Sig/Jose C Start time Last Medication Dose Route Stop Time Status Admin Acetaminophen 650 MG Q6P PRN 09/20 230 AC PO Enoxaparin Sodium 40 MG DAILY 09/21 1000 AC SC Folic Acid 1 MG DAILY 09/21 1917 AC 09/22 PO 0941 Labetalol HCl 200 MG BID 09/21 1000 AC 09/22 PO 0941 Lorazepam 0 Q1P PRN 09/20 2300 AC IV Multivitamins 1 TAB DAILY 09/21 1917 AC 09/22 PO 0941 Nicotine 14 MG Q24 09/21 1000 AC TOP Thiamine HCl 50 MG DAILY 09/21 1917 AC 09/22 PO 0941 Results Last 48 Hrs of Labs/Mics: Laboratory Tests 09/21/16 0650: Anion Gap 9, CBC w Diff NO MAN DIFF REQ, RBC 4.29 L, MCV 94.7 H, MCH 31.6 H, RDW 14.7 H, MPV 7.9, Gran % 56.4, Lymphocytes % 32.0, Monocytes % 7.2, Eosinophils % 3.7, Basophils % 0.7, Absolute Granulocytes 3.8, Absolute Lymphocytes 2.1, Absolute Monocytes 0.5, Absolute Eosinophils 0.2, Absolute Basophils 0, PUBS MCHC 33.4 09/21/16 0500: Troponin I Cancelled 09/21/16 0015: Troponin I < 0.01 09/20/16 1703: Anion Gap 11, Estimated GFR > 60, BUN/Creatinine Ratio 13.8, Glucose 95, Calcium 10.0, Total Bilirubin 0.9, AST 24, ALT 37, Alkaline Phosphatase 132 H, Troponin I < 0.01, Total Protein 7.7, Albumin 4.3, Globulin 3.4, Albumin/Globulin Ratio 1.3, CBC w Diff NO MAN DIFF REQ, RBC 4.58 L, MCV 94.7 H, MCH 31.6 H, RDW 14.7 H, MPV 7.6, Gran % 66.8, Lymphocytes % 25.2, Monocytes % 5.4, Eosinophils % 2.0 , Basophils % 0.6, Absolute Granulocytes 6.9 H, Absolute Lymphocytes 2.6, Absolute Monocytes 0.6, Absolute Eosinophils 0.2, Absolute Basophils 0.1, PUBS MCHC 33.3, Serum Alcohol < 10.0 Assessment/Plan Assessment/Plan Assessment: 1. Alcohol abuse 2. Hypertensive urgency, improved 3. Abnormal EKG Plan: * Continue current medications. * Discharged to home today. * Please give the patient a note stating that he may return to work Saturday. * Echocardiogram to be done as an outpatient with Dr. Bruno. * Follow up in one week with Dr. Bruno. Continue telemetry? No
== END 2016-09-22 11:45 | DRG 305 ==
LOC: ENRESERVDT → ENRESERVTM → ERH 16:41 → ERHI 20:21 → 1NO 20:21 → ENPENDDIS 20:21 → 1NO 22:53
PROVIDERS: Emergency Medicine; Internal Medicine; ADMIT Internal Medicine Interventional Cardiology
DX: I16.0 Hypertensive urgency (principal); F10.239 Alcohol dependence with withdrawal, unspecified; F17.210 Nicotine dependence, cigarettes, uncomplicated; I45.10 Unspecified right bundle-branch block; F41.8 Other specified anxiety disorders
CPT/HCPCS: 1NSP; 36415; 93005; 93010; 96374; 99291; G0480; J1650; J3490; Q2036